=== PATIENT | female | born 1935 | race Caucasian/White ===

== ENCOUNTER 2016-10-10 20:55 | Emergency (ER) | payer OTHER ==
[~2016-10-10] VITALS: Ht 160 cm; Wt 102.1 kg
--- NOTE | ~2016-10-10 | EKG ---
[place] [address] [facility] [place] [place] [place] [address] ELECTROCARDIOGRAM REPORT Name: SHEILA BRANCH Room #: [facility] [id number] Admission: 10/10/16 Attend Phys: Discharge: 10/11/16 Date of : 39 Report #: [id number] THIS REPORT FOR: //name// [facility] ED Test Date: 2016-10-10 Test Time: 22:16:47 Pat Name: SHEILA BRANCH Department: Room: Gender: F Stretching Machine Operator: MARIA EUGENIA : 1935 Requested By: Lavonne Donald Order Number: [id number] MD: Stephen Tenorio Measurements Intervals [place] Rate: 77 P: 2 TX: 153 QRS: -5 QRSD: 102 T: 36 QT: 385 QTc: 436 Interpretive Statements Sinus rhythm Low voltage, precordial leads No previous ECG available for comparison Electronically Signed On 10-11-2016 8:10:31 WAREHOUSEMAN by Stephen Tenorio [email or web address] <ELECTRONICALLY SIGNED> By: Stephen Tenorio MD 10/11/16 0810 2216 2216 MD DEANNA Garces
[~2016-10-10 20:55] MED LIST: ALLOPURINOL 10100 M1 PO; APAP500 PO; ASPIRIN325 PO; BELLADONNA ALK/1 TA1 PO; CALCIUM CARBONATE PO; CITRACAL PLUS1 EAC1 PO; CLONAZEPAM 0.50.5 M1 PO; CLONAZEPAM PO; COLCHICINE 0.60.6 M1 PO; COLCHICINE PO; DULERA 100 MCG/13 GM INH; ENDUR-ACIN500 MG PO; ENOXAPARIN100 MG/11 SUBQ; EYE VITAMIN; HYDROCORTISONE; IBUPROFEN 800800 M1 PO; LEVOTHROID150 MCG PO; LEVOTHYROXIN0.125 M1 PO; LEXAPRO 10 MG T10 MG PO; LO-DOSE ASPIRIN81 M1 PO; LOFIBRA200 MG PO; MICARDIS40 MG PO; NEURONTIN600 MG PO; OMEGA-31000 MG PO; PRILOSEC 20 MG20 MG PO; PROAIR HFA8.5 GM INH; SPIRONOLACTONE25 M1 PO; SYMBICORT160 MCG/4.; SYSTANE 0.3-0.1 EACH OP; TRAMADOL 50 MG50 MG PO; TRIGLIDE160 M1 PO; TUMS E.S.750 MG PO; XARELTO15 MG; ZOCOR 20 MG TAB20 M1 PO
[2016-10-10 22:05] LABS: HEMATOCRIT 37.9 % (37.0-47.0); HEMOGLOBIN 12.9 gm/dL (12.0-15.0); MCH 30.4 pg (26.0-34.0); MCV 89.3 fL (80.0-100.0); PLATELET COUNT 243 thou/uL (150-400); RBC 4.24 mil/uL (4.20-5.00); RDW 14.5 % (10.5-14.5)
[2016-10-10 22:06] LABS: MANUAL DIFF YES
[2016-10-10 22:15] LABS: ANION GAP 8 mmol/L (7-16); BUN 24 mg/dL (7-18); CHLORIDE 102 mmol/L (98-107); CO2 30 mmol/L (21-32); CREATININE 1.6 mg/dL (0.6-1.3); GLUCOSE 118 mg/dL (70-99); POTASSIUM 4.4 mmol/L (3.5-5.1); SODIUM 140 mmol/L (136-145)
[2016-10-10 22:27] LABS: NT-PRO BRAIN NAT PEPTIDE 461 pg/mL (<300); TROPONIN-I < 0.04 ng/mL (<0.04-0.07)
[2016-10-10 22:55] LABS: ABSOLUTE NEUTROPHILS 3.3 thou/uL (1.4-8.2); ATYPICAL LYMPHS 1 %; TOTAL CELL COUNT 100
[2016-10-10 23:06] LABS: URINE BILIRUBIN NEGATIVE (Negative); URINE BLOOD NEGATIVE (Negative); URINE COLOR YELLOW; URINE GLUCOSE-RANDOM* NEGATIVE (Negative); URINE KETONES NEGATIVE (Negative); URINE LEUKOCYTES-REFLEX 1+ (Negative); URINE PROTEIN (DIPSTICK) NEGATIVE (Negative); URINE UROBILINOGEN 0.2 E.U./dl (0.2-1.0)
[2016-10-10 23:21] LABS: CASTS None Seen /LPF (None Seen); CRYSTALS None Seen /LPF (None Seen); FINE GRANULAR CASTS 0-3 Few /LPF (None Seen); SQUAMOUS 0-3 Few /LPF (0-3)
[2016-10-10 23:22] LABS: URINE RBC None Seen /HPF (0-2); URINE WBC-REFLEX 0-5 Rare /HPF (0-5)
[2016-10-10 23:23] LABS: HYALINE CASTS 0-3 Few /LPF (None Seen)
== END 2016-10-11 02:20 | disposition home or self-care (01) ==
LOC: ER 20:55
PROVIDERS: Emergency Medicine
DX: J06.9 Acute upper respiratory infection, unspecified (principal); R53.83 Other fatigue; I10 Essential (primary) hypertension; M19.90 Unspecified osteoarthritis, unspecified site; J45.909 Unspecified asthma, uncomplicated; Z90.710 Acquired absence of both cervix and uterus; Z90.49 Acquired absence of other specified parts of digestive tract; Z96.653 Presence of artificial knee joint, bilateral

== ENCOUNTER → 2016-12-27 | Outpatient (CLI) | payer OTHER | LOC: RAD 14:54 | DX: R05 Cough (principal) ==

== ENCOUNTER → 2017-07-05 | Outpatient (CLI) | payer OTHER ==
[~2017-07-05] VITALS: Ht 236.2 cm; Wt 105.7 kg
[~2017-07-05] MED LIST changes: +CENTRUM SILVER1 EAC4 PO; +LASIX 40 MG TAB40 M2 PO; +MEGARED OMEGA-1 EAC1 PO; +NABUMETONE 500500 M2 PO; +VITAMIN B-12500 MCG PO; +VITAMINC500 PO
--- NOTE | ~2017-07-05 | HPC ---
[facility] [address] [place] [address] PAIN MANAGEMENT CONSULTATION Name: SHEILA BRANCH Room #: REG BALJIT ArciniegaConradoGabeConrado#: [id number] Admission: 07/05/17 Attend Phys: Rupesh Gao DO Discharge: Date of : 37 Report #: [id number] THIS REPORT FOR: //name// CC: Rupesh Ramires MD DATE OF SERVICE: 07/05/2017 REFERRING PHYSICIAN: Walker Ramires MD CHIEF COMPLAINT: Right upper buttock and posterolateral thigh pain. HISTORY OF PRESENT ILLNESS: As you know, patient is a 81-year-old female with long-standing history of right buttock pain and hip pain, radiating down the right leg. She has had this for at least 8 years. She has progressively worsened. There is some concern with recent fall that the patient may have subsequently injured her pelvic brim though recent imaging showed no changes. She indicates her pain level of 8-9/10 today. She has been referred to our service to discuss options for treatment. She indicates pain is periodic, describes the pain as aching and sharp, places pain score today at 8-9/10, daily average is 7-8/10, worst pain has been 9/10. She states her pain is exacerbated with walking, standing; improves with stopping and resting. She has been referred to our service for evaluation. MRI lumbar spine that comes with the patient is from 2010. No other imaging is available. She has been referred to our clinic to discuss options for treatment. PAST MEDICAL HISTORY: 1. Hypertension. 2. Degenerative joint disease. 3. Osteoarthritis. 4. Gastroesophageal reflux disease. 5. Depression. 6. Gout. 7. Dyslipidemia. PAST SURGICAL HISTORY: 1. Left knee surgery. 2. Right knee surgery. 3. Left hip surgery. 4. Hysterectomy. SOCIAL HISTORY: The patient has a history of COPD without smoking. Denies IV or illicit drug use. Denies any chronic alcohol use. She is retired. She is unaccompanied today. [facility] [address] [place] [address] PAIN MANAGEMENT CONSULTATION Name: SHEILA BRANCH Raquel Room #: REG [facility].#: [id number] Admission: 07/05/17 Attend Phys: Rupesh Gao DO Discharge: Date of : 37 Report #: [id number] REVIEW OF SYSTEMS: Positive for fatigue and weakness, frequent and recurrent headaches, wearing corrective eyewear, shortness of breath walking or lying flat, asthma, wheezing, COPD, low back pain, left lower extremity pain, difficulty with ambulating, depression, insomnia, thyroid disease, heat and cold intolerance, obesity. All other review of systems negative per 12-point review of systems other than those listed in history of present illness. Pain impact score 46/70, indicating moderate to severe interference of daily activities secondary to pain. ALLERGIES: No reported drug allergies. CURRENT MEDICATIONS: MegaRed and omega-3 fish oil 1 tab per day, multivitamin 1 tab per day, cyanocobalamin 500 mcg per day, furosemide 40 mg per day, ascorbic acid 500 mg per day, levothyroxine 125 mcg per day, fenofibrate 160 mg per day, aspirin 81 mg per day, Systane one drop each eye per day, allopurinol 100 mg twice a day, omeprazole 20 mg per day, Lexapro 10 mg per day, Micardis 40 mg per day, spironolactone 25 mg per day. IMAGING: No new imaging available. PHYSICAL EXAMINATION: VITAL SIGNS: Blood pressure 134/66, pulse 88, respiratory rate 22 and unlabored. The patient is 95% on room air, height 5 feet 3 inches tall, weight 233 pounds, BMI calculated 41.3. GENERAL: Well-developed, well-nourished, well-hydrated, class 3 morbidly obese 81-year-old female appearing stated age. Pain is rated around 8-9/10. HEENT: Normocephalic, atraumatic. Pupils equal, round, reactive to light. Extraocular muscles are intact. Sclerae nonicteric without injection. NEUROLOGIC: Cranial nerves 2-12 grossly intact. Speech is fluent. The patient deemed a poor historian. LUNGS: Clear; no wheeze, rhonchi or rales. CARDIOVASCULAR: Regular. No appreciable gallop or rub. ABDOMEN: Soft, severely obese, normoactive bowel sounds. EXTREMITIES: Show no clubbing, no cyanosis, no edema. MUSCULOSKELETAL: The patient has palpatory tenderness over the lower lumbar spine, right greater than left. Deep palpation in the area causes intensification of pain. Pain is radiating across the lower lumbar region in a facet distribute. Seated straight leg raising negative. Supine straight leg raising positive for only axial back pain. Akiko's test is positive right, negative left. Ankle clonus negative. Babinski is negative. Muscle bulk and tone equal and symmetrical in lower extremities, deconditioning noted bilaterally. Gait antalgic, favoring right lower extremity over left. ASSESSMENT: 1. 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 [facility] [address] [place] [address] PAIN MANAGEMENT CONSULTATION Name: SHEILA BRANCH Room #: REG BALJIT Price#: [id number] Admission: 07/05/17 Attend Phys: Rupesh Gao DO Discharge: Date of : 37 Report #: [id number] 2. Facet arthropathy of lower lumbar spine. 3. Chronic intractable pain. PLAN: 1. The patient was referred to our clinic today by her primary care physician for evaluation for axial back pain issues. It does appear the patient is suffering from facet arthropathy of lower lumbar spine. I am also concerned of some potential changes within the sacral area itself as her pain is exquisitely tender directly over the area. These are likely related to the facet joints of the lower lumbar spine given her morbid obesity, class 3 rating and her current posture and lack of core strengthening, she is likely suffering from progressively worsening facet arthropathy. In 2010, her MRI shows severe facet changes and these have likely progressed. There is also a potential the patient has spinal stenosis and may need to look towards surgical intervention, though I do not have any imaging to initiate treatment. Typically, patients are sent to our clinic with some form of imaging that is current and up to date. Unfortunately, the patient did not have this completed. She comes today with imaging from 2010. To further evaluate, we will send the patient for imaging initially and discuss options for treatment once this imaging has been obtained. 2. The patient will be send for x-ray imaging, AP and lateral of the lumbar spine. We will review the findings once they are available with the patient. We will discuss the treatment options based on this whether or not moving forward with an MRI or interventional treatments could be directed towards facet arthropathy changes, will be determined by the x-ray imaging. 3. The patient will return to our clinic in 1 week. We will review the x-ray imaging and discuss if more aggressive treatment options will be necessary or further imaging might be requested. 4. We wish to thank Dr. Walker Ramires for the referral of this patient to our clinic. We appreciate the opportunity to see the patient in consultation. We will keep you apprised of her response to treatment and return her to your capable hands once we have determined the source of treatment options and the most effective way of treating her low back symptoms. Again, we wish to thank you for the opportunity to see this patient in consultation. <ELECTRONICALLY SIGNED> By: Rupesh Gao DO 07/13/17 0806 2 0849 Rupesh Gao DO /nt
[2017-07-05 13:45] VITALS: BP 134/66
== END | disposition home or self-care (01) ==
LOC: PAIN 07:18
DX: M47.817 Spondylosis without myelopathy or radiculopathy, lumbosacral region (principal); M12.88 Other specific arthropathies, not elsewhere classified, other specified site; G89.29 Other chronic pain; I10 Essential (primary) hypertension; J44.9 Chronic obstructive pulmonary disease, unspecified; M19.90 Unspecified osteoarthritis, unspecified site; K21.9 Gastro-esophageal reflux disease without esophagitis; F32.89 Other specified depressive episodes; M10.9 Gout, unspecified; E07.9 Disorder of thyroid, unspecified; E78.5 Hyperlipidemia, unspecified; E66.09 Other obesity due to excess calories; Z90.710 Acquired absence of both cervix and uterus; Z98.890 Other specified postprocedural states; Z79.82 Long term (current) use of aspirin; Z79.899 Other long term (current) drug therapy; Z68.41 Body mass index [BMI] 40.0-44.9, adult

== ENCOUNTER → 2017-07-12 | Outpatient (CLI) | payer OTHER ==
[~2017-07-12] VITALS: Ht 160 cm; Wt 107.0 kg
--- NOTE | ~2017-07-12 | HPC ---
[facility] [address] [place] [address] PAIN MANAGEMENT CONSULTATION Name: SHEILA BRANCH Room #: REG BALIJT ConradoGabe.#: [id number] Admission: 07/12/17 Attend Phys: Rupesh Gao DO Discharge: Date of : 37 Report #: [id number] THIS REPORT FOR: //name// CC: Rupesh Ramires MD DATE OF SERVICE: 07/12/2017 REFERRING PHYSICIAN: Walker Ramires MD CHIEF COMPLAINT: Low back pain, bilateral lower extremity pain. HISTORY OF PRESENT ILLNESS: As you know, the patient is a 81-year-old female who returns today in followup visit to undergo lumbar epidural injection under fluoroscopic guidance. The patient underwent imaging last week of the lumbar and pelvic area, there are no fractures or concerns of dislocations after her fall. It appears the patient is suffering from continued lumbar radicular symptoms. She returns today in followup visit to undergo epidural injection under fluoroscopic guidance to address her 5/10 pain. Pain is exacerbated with standing, walking, improves with rest and sitting. She returns today for this epidural injection. ALLERGIES: No known drug allergies. CURRENT MEDICATIONS: Tramadol, nabumetone, omega-3 fish oil, multivitamin, cyanocobalamin, furosemide, ascorbic acid, levothyroxine, fenofibrate, aspirin, magnesium oxide, Prilosec, Lexapro, Micardis, and spirolactone. SOCIAL HISTORY: The patient denies tobacco, alcohol, IV or illicit drug use. She is retired, retired years ago, unaccompanied today. IMAGING: No new imaging available. PHYSICAL EXAMINATION: VITAL SIGNS: Blood pressure 122/67, pulse 87, respiratory rate 22 and unlabored, the patient is 95% on room air, height 5 feet 3 inches tall, weight 236 pounds, and BMI calculated 41.8. GENERAL: Well-developed, well-nourished, well-hydrated, class 3 morbidly obese 81-year-old female, appearing her stated age, pain is rated at around 5/10. HEENT: Normocephalic, atraumatic. Pupils are equal, round, and reactive to light. EXTREMITIES: Show no clubbing, no cyanosis, and no edema. MUSCULOSKELETAL: Seated straight leg raising negative. Supine straight leg raising negative. Akiko's test negative. Modified Gaenslen's positive for axial low back pain. Ankle clonus negative. Babinski is negative. [facility] [address] [place] [address] PAIN MANAGEMENT CONSULTATION Name: SHEILA BRANCH Room #: REG [facility]#: [id number] Admission: 07/12/17 Attend Phys: Rupesh Gao DO Discharge: Date of : 37 Report #: [id number] ASSESSMENT: 1. Lumbar radicular symptoms. 2. Lumbosacral spondylosis with radiculopathy. 3. Chronic intractable pain. PLAN: 1. The patient returns today in followup visit where we reviewed her x-ray imaging, I am pleased to advise the patient at this time that there are no fractures of the sacrum or pelvic area. The patient was experiencing increased back pain after a fall. No fractures in the lumbar region noted as well. We have discussed with the patient the option of the epidural injection today in hopes of improving pain. She was amenable to undergo the procedure. She was advised the risks and benefits. 2. The patient was advised the risks and benefits of a lumbar epidural injection. These risks include, but are not necessarily limited to bleeding, bruising, infection, worsening of pain, no relief of pain, also risk of temporary or permanent muscle weakness, temporary or permanent nerve damage, possible paralysis and . The patient states understood and wished to proceed. 3. No medication changes were made at today's visit, the patient to continue current medical therapy as previously prescribed. 4. We will see the patient back in followup visit on an as needed basis for next in the series of epidural injections. PROCEDURE NOTE DESCRIPTION OF PROCEDURE: L5-S1 right paramedian epidural steroid injection under fluoroscopic guidance. After obtaining written consent, the patient was taken back to fluoroscopy suite, placed in prone position with pillow under abdomen to decrease lumbar lordosis. Skin overlying the lumbosacral area was prepped and draped in aseptic fashion. Lumbar intervertebral spaces were identified by AP fluoroscopy. Skin and subcutaneous tissue overlying target site of injection was anesthetized with 3 mL of 1% lidocaine. A 20-gauge 4-1/2-inch Tuohy needle advanced under fluoroscopic guidance towards the epidural space using a right paramedian approach. Epidural space identified using loss of resistance to air technique. After negative aspiration for heme or cerebrospinal fluid, 1 mL of Isovue was injected. Lumbar epidurogram was confirmed using both AP and lateral fluoroscopy. After negative aspiration for heme or cerebrospinal fluid, 5 mL of a solution containing 2 mL 40 mg per mL, 80 mg total triamcinolone, 3 mL lidocaine 1% injected slowly. Needle retracted alf, needle tract flushed 3 mL 1% lidocaine. Needle then removed. Sterile bandage placed over injection site. No new motor deficits present in the lower [address] [address] PAIN MANAGEMENT CONSULTATION Name: SHEILA BRANCH [facility] [id number] Admission: 07/12/17 Attend Phys: Rupesh Gao DO Discharge: Date of : 37 Report #: [id number] extremity following procedure. The patient tolerated the procedure well, carefully escorted to the recovery room in stable condition. No apparent complications. After meeting discharge criteria, the patient discharged home. <ELECTRONICALLY SIGNED> By: Rupesh Gao DO 07/13/17 0806 1630 1703 Rupesh Gao DO /nt
[2017-07-12 11:31] VITALS: BP 122/67
== END | disposition home or self-care (01) ==
LOC: PAIN 07:35
DX: M54.16 Radiculopathy, lumbar region (principal); M47.27 Other spondylosis with radiculopathy, lumbosacral region; G89.29 Other chronic pain; Z68.41 Body mass index [BMI] 40.0-44.9, adult; Z79.899 Other long term (current) drug therapy

== ENCOUNTER → 2017-08-02 | Outpatient (CLI) | payer OTHER ==
[~2017-08-02] VITALS: Ht 160 cm; Wt 101.9 kg
--- NOTE | ~2017-08-02 | HPC ---
[facility] [address] [place] [address] PAIN MANAGEMENT CONSULTATION Name: SHEILA BRANCH Room #: REG BALJIT Albert#: [id number] Admission: 08/02/17 Attend Phys: Rupesh Gao DO Discharge: Date of : 37 Report #: [id number] THIS REPORT FOR: //name// CC: Rupesh Ramires MD DATE OF SERVICE: 08/02/2017 CHIEF COMPLAINT: Low back pain, bilateral lower extremity pain with paresthesias. HISTORY OF PRESENT ILLNESS: As you know, the patient is a 81-year-old female who returns today in followup visit having undergone epidural injection at our last visit to address lumbar radicular symptoms. She is now placing pain score 3/10. She reports 75% improvement in overall pain that is ongoing with the previous injection. She returns today to undergo in the series of epidural injections to build on success of previous intervention. She denies new injury, new trauma that may have led to progression of symptoms. She describes the pain as burning, aching and sharp. Standing and walking exacerbate symptoms. Rest, sitting and epidural injections tend to improve pain. She has returned to undergo epidural injection. ALLERGIES: No known drug allergies. CURRENT MEDICATIONS: Tramadol, nabumetone, omega 3 fish oil, multivitamin, cyanocobalamin, furosemide, ascorbic acid, levothyroxine, fenofibrate, aspirin, magnesium oxide, Prilosec, Lexapro, Micardis, spironolactone. SOCIAL HISTORY: The patient denies tobacco, alcohol, IV or illicit drug use. She is retired, retired years ago, unaccompanied today. IMAGING: No new imaging available. PHYSICAL EXAMINATION: VITAL SIGNS: Blood pressure 134/59, pulse 74, respiratory rate 20, unlabored. The patient is 95% on room air, height 5 feet 3 inch tall, weight 224.6 pounds, BMI calculated 39.8. GENERAL: Well-developed, well-nourished, well-hydrated, morbidly obese 81-year-old female appearing stated age, placing current pain score 3/10. HEENT: Normocephalic, atraumatic. Pupils are equal, round, reactive to light. EXTREMITIES: Show no clubbing, no cyanosis, no edema. MUSCULOSKELETAL: Seated straight leg raising negative. Supine straight leg raising negative. Akiko's test negative. Modified Gaenslen's positive for axial low back pain. Ankle clonus negative. Babinski is negative. [facility] [address] [place] [address] PAIN MANAGEMENT CONSULTATION Name: SHEILA BRANCH Room #: REG [facility]#: [id number] Admission: 08/02/17 Attend Phys: Rupesh Gao DO Discharge: Date of : 37 Report #: [id number] ASSESSMENT: 1. Symptomatic lumbar radiculopathy. 2. Lumbosacral spondylosis with radicular symptoms. 3. Lumbar degeneration. 4. Chronic intractable pain. PLAN: 1. The patient has returned today in followup visit reporting improvement in low back pain of 75% with the epidural injection provided at last visit. She returns today in followup visit reporting pain score around 3/10. She returns to undergo next in the series of epidural injections in hopes of building on success of the previous intervention. She has been advised risks and benefits of the procedure, states she understood and wished to proceed. 2. No medication changes were made at today's visit. I did provide the patient with a refill prescription of her tramadol 50 mg dose, #60, no refills. I did advise the patient this medication should last 30 days, she should not be relying on the medication prophylactically. 3. We will see the patient back in followup visit on an as needed basis. She can receive the tramadol from her PCP if interventional treatments are not necessary and she just needs refills of therapy. PROCEDURE NOTE DESCRIPTION OF PROCEDURE: Lumbar epidural steroid injection under fluoroscopic guidance. After obtaining written consent, the patient was taken back to fluoroscopy suite, placed in prone position with pillow under abdomen to decrease lumbar lordosis. Skin overlying lumbosacral area prepped and draped in aseptic fashion. Lumbar intervertebral spaces were identified by AP fluoroscopy. Skin and subcutaneous tissue overlying the target site of injection was anesthetized with 3 mL of 1% lidocaine. A 20-gauge 4-1/2 inch Tuohy needle advanced under fluoroscopic guidance towards the epidural space using a midline approach. Epidural space identified using loss of resistance to air technique. After negative aspiration for heme or cerebrospinal fluid, 1 mL of Omnipaque was injected. Lumbar epidurogram was confirmed using both AP and lateral fluoroscopy. After negative aspiration for heme or cerebrospinal fluid, 5 mL of a solution containing 2 mL 40 mg per mL, 80 mg total triamcinolone, 3 mL lidocaine 1% injected slowly. Needle retracted fci, needle tract flushed with 3 mL 1% lidocaine. Needle then removed. Sterile bandage placed over injection site. No new motor deficits present in the lower extremity following the procedure. The patient tolerated procedure well, carefully escorted to the recovery room in [address] [address] PAIN MANAGEMENT CONSULTATION Name: SHEILA BRANCH Room #: REG BALJIT BolandConrado#: [id number] Admission: 08/02/17 Attend Phys: Rupesh Gao DO Discharge: Date of : 37 Report #: [id number] stable condition. No apparent complication. After meeting discharge criteria, the patient discharged home. By: 0836 1256 Rupesh Gao DO /nt
[2017-08-02 11:32] VITALS: BP 134/59
== END | disposition home or self-care (01) ==
LOC: PAIN 05:54
DX: M51.36 Other intervertebral disc degeneration, lumbar region (principal); M47.27 Other spondylosis with radiculopathy, lumbosacral region; G89.29 Other chronic pain; Z79.82 Long term (current) use of aspirin; Z98.890 Other specified postprocedural states

== ENCOUNTER 2017-12-10 03:51 | Inpatient (IN) | payer OTHER ==
[~2017-12-10] VITALS: Ht 160 cm; Wt 100.3 kg
--- NOTE | ~2017-12-10 | EKG ---
[place] [address] [facility] [place] [address] ELECTROCARDIOGRAM REPORT Name: SHEILA BRANCH Room #: 447-P ADM IN M.R.#: [id number] Admission: 12/10/17 Attend Phys: Walker Ramires MD Discharge: Date of : 37 Report #: [id number] THIS REPORT FOR: //name// [facility] ED Test Date: 2017-12-10 Test Time: 04:42:14 Pat Name: SHEILA BRANCH Department: Room: [facility] Gender: F Integrity Consultant: [facility] : 1935 Requested By: Luis Hein Order Number: [id number] MD: Jesus Gordon Measurements Intervals [place] Rate: 90 P: -2 IN: 155 QRS: -3 QRSD: 98 T: 51 QT: 378 QTc: 463 Interpretive Statements Sinus rhythm Low voltage, precordial leads Compared to ECG 10/10/2016 22:16:47 No significant changes Electronically Signed On 12-10-2017 13:08:41 MANAGER STRATEGIC by Jesus Gordon [email or web address] <ELECTRONICALLY SIGNED> By: Jesus Gordon MD, [facility] 12/10/17 1308 044 044 Jesus Gordon MD, [facility] /EPI
--- NOTE | ~2017-12-10 | HC ---
[facility] [address] [place] [address] CONSULTATION Name: SHEILA BRANCH Room #: 447-P [facility] [place] ..#: [id number] Admission: 12/10/17 Attend Phys: Walker Ramires MD Discharge: Date of : 39 Report #: [id number] THIS REPORT FOR: //name// CC: Walker Ramires TYPE OF REPORT: Pulmonary consultation. PRIMARY CARE PHYSICIAN: Walker Ramires M.D. REASON FOR CONSULTATION: Dyspnea, flu and COPD. HISTORY OF PRESENT ILLNESS: The patient is an 82-year-old white female who presents to Emergency Room with a cough, myalgias and progressively not feeling well. She was found to have influenza. The patient was admitted. The patient states that she has been told that she has COPD. She has never smoked in the past. Otherwise, she has been doing fairly well until about a week ago when she was out for dinner with children, grandchildren and great grandchildren. Few days later, she felt ill with chills, myalgias. Few days ago, she started to develop cough productive of yellowish sputum. With worsening symptoms, she presented to Emergency Room. Chest x-ray performed in the Emergency Room was clear. Her influenza antigen was positive for influenza B. Her other complaints are sore throat and dyspnea. PAST MEDICAL HISTORY: Notable for pulmonary embolus in 2012. She was felt to have submassive pulmonary embolus. This occurred following a trip by airplane. She has a history of hypertension, osteoarthritis, dyslipidemia, hypothyroidism and coronary artery disease. Of note, she has completed 6 months of anticoagulant therapy for pulmonary embolus. PAST SURGICAL HISTORY: Notable for vein ablation surgery in both lower extremities, left total knee replacement in 2003 and 2004, right total knee replacement, left hip replacement in 2001, cholecystectomy in 1982, total hysterectomy in 1974 and cataract surgery. ALLERGIES: None noted. HOME MEDICATIONS: Nabumetone 500 mg t.i.d., Ultram, spironolactone, Micardis, Lexapro, Prilosec, Zyloprim, aspirin, fenofibrate, Synthroid, Lasix and multivitamins. FAMILY HISTORY: Notable for CVA and heart disease in the father who at the age of 77. [address] [address] CONSULTATION Name: SHEILA BRANCH Room #: 447-P [facility] IN M.R.#: [id number] Admission: 12/10/17 Attend Phys: Walker Ramires MD Discharge: Date of : 39 Report #: [id number] SOCIAL HISTORY: She is , lives by herself. She has family who lives in town. She is a lifetime nonsmoker. She denies any alcohol use. REVIEW OF SYSTEMS: As mentioned above, otherwise 10-point system review negative. PHYSICAL EXAMINATION: GENERAL: She is awake and alert, in no distress. VITAL SIGNS: Temperature maximum is 102 degrees Fahrenheit, pulse is 74, respiratory rate is 20, blood pressure is 118/95 mmHg and saturation 94%. HEENT: Normocephalic and atraumatic. NECK: Supple, without any lymphadenopathy or thyromegaly. CHEST: Breath sounds are fair with mild expiratory wheezes. No rales. CARDIOVASCULAR: Heart sounds are distant. No murmurs or gallop. Pulses are 2+/4+ bilaterally. BREASTS: Exam is deferred. ABDOMEN: Obese, soft and nontender. No organomegaly or masses felt. GENITOURINARY: Deferred. RECTAL: Deferred. EXTREMITIES: No cyanosis or clubbing. Trace edema bilaterally. RADIOLOGICAL DATA: Chest x-ray again was unremarkable. LABORATORY DATA: Influenza antigen as mentioned above. Sodium 135, potassium 3.7, chloride 100, CO2 is 29, BUN is 25 and creatinine is 1.4. Liver function enzymes are mildly elevated. WBC 6200, hemoglobin is 12.9 and platelets are normal. IMPRESSION: 1. Acute respiratory distress due to influenza B, possible pneumonia. 2. Chronic obstructive pulmonary disease, mild exacerbation. Note the patient has never smoked, (?) asthma or obesity related asthma. 3. Acute kidney injury with a creatinine of 1.1. RECOMMENDATIONS: Agree with current treatment including Tamiflu, bronchodilators, corticosteroids and broad-spectrum antibiotics. DVT and GI prophylaxis will be addressed. Thank you for this consultation. <ELECTRONICALLY SIGNED> By: Blair Mckeon MD 12/11/17 1526 1526 [id number] Blair Mckeon MD /nt
[2017-12-10 03:55] VITALS: BP 153/78
[2017-12-10 05:15] LABS: HEMATOCRIT 38.3 % (37.0-47.0); HEMOGLOBIN 12.9 gm/dL (12.0-15.0); MCH 30.7 pg (26.0-34.0); MCHC 33.7 g/dL (28.0-37.0); MCV 91.1 fL (80.0-100.0); PLATELET COUNT 182 thou/uL (150-400); RDW 14.5 % (10.5-14.5); WBC 6.2 thou/uL (4.0-11.0)
[2017-12-10 05:22] LABS: ANION GAP 6 mmol/L (7-16); BUN 25 mg/dL (7-18); CALCIUM 8.9 mg/dL (8.5-10.1); CHLORIDE 100 mmol/L (98-107); CO2 29 mmol/L (21-32); CREATININE 1.4 mg/dL (0.6-1.0); GLUCOSE 122 mg/dL (74-106); POTASSIUM 3.7 mmol/L (3.5-5.1); SODIUM 135 mmol/L (136-145)
[2017-12-10 05:31] LABS: ALBUMIN 3.5 g/dL (3.4-5.0); MAGNESIUM 1.6 mg/dL (1.8-2.4); SGOT 57 U/L (15-37); SGPT 45 U/L (30-65); TOTAL BILIRUBIN 0.4 mg/dL (<0.1-1.0); TOTAL PROTEIN 6.8 g/dL (6.4-8.2); TROPONIN-I < 0.04 ng/mL (<0.06)
[2017-12-10 05:31] LABS: URINE BILIRUBIN NEGATIVE (Negative); URINE BLOOD NEGATIVE (Negative); URINE CLARITY CLEAR; URINE COLOR YELLOW; URINE GLUCOSE-RANDOM* NEGATIVE (Negative); URINE KETONES NEGATIVE (Negative); URINE LEUKOCYTES-REFLEX NEGATIVE (Negative); URINE NITRITE-REFLEX NEGATIVE (Negative); URINE PROTEIN (DIPSTICK) NEGATIVE (Negative); URINE UROBILINOGEN 0.2 E.U./dl (0.2-1.0)
[2017-12-10 05:59] LABS: ATYPICAL LYMPHS 1 %; LARGE PLATELETS OCCASIONAL
[2017-12-10 07:43] VITALS: BP 158/78
[2017-12-10 08:10] VITALS: BP 158/78
[2017-12-10 09:40] VITALS: BP 118/95
[2017-12-10 16:24] VITALS: BP 145/70
[2017-12-10 19:25] VITALS: BP 134/69
[2017-12-11 03:41] VITALS: BP 151/93
[2017-12-11 06:12] LABS: HEMATOCRIT 35.5 % (37.0-47.0); MCH 30.9 pg (26.0-34.0); MCHC 33.9 g/dL (28.0-37.0); MCV 91.1 fL (80.0-100.0); RBC 3.9 mil/uL (4.20-5.00); RDW 14.6 % (10.5-14.5); WBC 5.5 thou/uL (4.0-11.0)
[2017-12-11 06:32] LABS: CALCIUM 8.3 mg/dL (8.5-10.1); CREATININE 1.1 mg/dL (0.6-1.0); POTASSIUM 3.5 mmol/L (3.5-5.1)
[2017-12-11 08:30] VITALS: BP 156/88
[2017-12-11 16:49] VITALS: BP 150/80
[2017-12-11 19:44] VITALS: BP 156/82
[2017-12-12 04:19] VITALS: BP 123/62
[2017-12-12 07:24] LABS: HEMATOCRIT 36.6 % (37.0-47.0); HEMOGLOBIN 12.2 gm/dL (12.0-15.0); MCH 30.6 pg (26.0-34.0); MCHC 33.2 g/dL (28.0-37.0); MCV 91.9 fL (80.0-100.0); RBC 3.98 mil/uL (4.20-5.00); WBC 5.1 thou/uL (4.0-11.0)
[2017-12-12 07:36] LABS: CALCIUM 8.1 mg/dL (8.5-10.1); CREATININE 0.9 mg/dL (0.6-1.0); POTASSIUM 4.5 mmol/L (3.5-5.1)
[2017-12-12 08:00] VITALS: BP 156/95
[2017-12-12 16:00] VITALS: BP 170/87
[2017-12-12 19:21] VITALS: BP 158/62
[2017-12-13 03:13] VITALS: BP 156/81
[2017-12-13 08:00] VITALS: BP 137/55
[2017-12-13 16:00] VITALS: BP 155/79
[2017-12-13 20:31] VITALS: BP 170/87
[2017-12-14 00:57] VITALS: BP 163/81
[2017-12-14 03:18] VITALS: BP 164/82
[2017-12-14 08:00] VITALS: BP 173/88
[2017-12-14 09:49] LABS: HEMOGLOBIN 13.5 gm/dL (12.0-15.0); MCH 30.6 pg (26.0-34.0); MCHC 33.7 g/dL (28.0-37.0); MCV 90.7 fL (80.0-100.0); RBC 4.42 mil/uL (4.20-5.00); RDW 14.4 % (10.5-14.5); WBC 6.2 thou/uL (4.0-11.0)
[2017-12-14 09:57] LABS: CALCIUM 9.3 mg/dL (8.5-10.1); CREATININE 1.1 mg/dL (0.6-1.0)
[2017-12-14] MEDS ORDERED: CEFDINIR300 MG PO (12:19)
[2017-12-14] MEDS ORDERED: AZITHROMYCIN 2250 MG PO (12:22)
[2017-12-14] MEDS ORDERED: OSELB75 PO (12:22)
[2017-12-14 16:47] VITALS: BP 173/88
[2017-12-15 10:21] VITALS: BP 173/88
== END 2017-12-14 17:25 | disposition home health service (06) | DRG 871 ==
LOC: ER 03:51 → EROBS 06:24 → 4S 06:24
PROVIDERS: Emergency Medicine; Family Medicine; Internal Medicine Pulmonary Disease
DX: A41.9 Sepsis, unspecified organism (principal); J10.00 Influenza due to other identified influenza virus with unspecified type of pneumonia; N17.0 Acute kidney failure with tubular necrosis; N17.9 Acute kidney failure, unspecified; J44.1 Chronic obstructive pulmonary disease with (acute) exacerbation; J44.0 Chronic obstructive pulmonary disease with (acute) lower respiratory infection; N18.9 Chronic kidney disease, unspecified; I12.9 Hypertensive chronic kidney disease with stage 1 through stage 4 chronic kidney disease, or unspecified chronic kidney disease; E78.5 Hyperlipidemia, unspecified; E03.9 Hypothyroidism, unspecified; I25.10 Atherosclerotic heart disease of native coronary artery without angina pectoris; Z96.653 Presence of artificial knee joint, bilateral; Z96.642 Presence of left artificial hip joint; Z90.710 Acquired absence of both cervix and uterus; Z79.899 Other long term (current) drug therapy; Z86.711 Personal history of pulmonary embolism; Z90.49 Acquired absence of other specified parts of digestive tract; Z82.49 Family history of ischemic heart disease and other diseases of the circulatory system; Z82.3 Family history of stroke
CPT/HCPCS: 10100

== ENCOUNTER → 2017-12-28 | Outpatient (CLI) | payer OTHER ==
[~2017-12-28] MED LIST changes: +ACCUNEB SO1.25 MG/1 INH; +AZITHROMYCIN 2250 MG PO; +CEFDINIR300 MG PO; +FENOFIBRATE160 MG PO; +FLONASE 0.05%50 MCG NASAL; +LUTEIN-ZEAXANT1 EACH PO; +MECLIZINE HCL25 MG PO; +OSELB75 PO; +SPIRIVA INH
== END ==
LOC: RAD 14:01
DX: M47.894 Other spondylosis, thoracic region (principal)

== ENCOUNTER → 2018-01-05 | Outpatient (CLI) | payer OTHER ==
[~2018-01-05] MED LIST changes: -ACCUNEB SO1.25 MG/1 INH; -FENOFIBRATE160 MG PO; -FLONASE 0.05%50 MCG NASAL; -LUTEIN-ZEAXANT1 EACH PO; -MECLIZINE HCL25 MG PO; -SPIRIVA INH
--- NOTE | ~2018-01-05 | 2DMMODE ---
[facility] [address] [place] [address] 2 D/M-MODE ECHOCARDIOGRAM Name: SHEILA BRANCH KELLEY Room #: REG [facility] [id number] Admission: 01/05/18 Attend Phys: Blair Mckeon MD Discharge: Date of : 39 Date of Service: 01/05/18 1551 Report #: [id number] THIS REPORT FOR: //name// APPROVED REPORT Study performed: 01/05/2018 13:28:07 EXAM: Comprehensive 2D, Doppler, and color-flow Echocardiogram Patient Location: Out-Patient Status: routine BSA: 2.05 HR: 86 bpm BP: 142/79 mmHg Rhythm: NSR Other Information Study Quality: Adequate Technically limited study due to lung disease, body habitus. Indications Short of breath. Hx: COPD pulmonary embolism 2D Dimensions RVDd: 36.88 mm LVEF(%): 60.51 (>50%) IVSd: 11.00 (7-11mm) LVOT Diam: 22.70 (18-24mm) LVDd: 46.91 mm PWd: 11.28 (7-11mm) Ascending Ao: 31.67 (22-36mm) LVDs: 31.77 (25-40mm) Aortic Root: 36.14 mm Jenkins's LVEF: 60.51 % Volumes Left Atrial Volume (Systole) Single Plane 4CH: 26.26 mL Single Plane 2CH: 35.59 mL LA ESV Index: 16.00 mL/m2 Aortic Valve AoV Peak Mo.: 1.27 m/s AO Peak Gr.: 6.47 mmHg LVOT Max P.58 mmHg LVOT Max V: 0.95 m/s ISAAC Vmax: 3.01 cm2 Mitral Valve [facility] [address] [place] [address] 2 D/M-MODE ECHOCARDIOGRAM Name: SHEILA BRANCH [facility] Room #: REG [facility].#: [id number] Admission: 01/05/18 Attend Phys: Blair Mckeon MD Discharge: Date of : 39 Date of Service: 01/05/18 1551 Report #: [id number] E/A Ratio: 0.4 MV Decel. Time: 288.84 ms MV E Max Mo.: 0.38 m/s MV A Mo.: 0.90 m/s MV PHT: 83.76 ms IVRT: 89.97 ms Pulmonary Valve PV Peak Mo.: 0.93 m/s PV Peak Gr.: 3.45 mmHg Pulmonary Vein P Vein S: 0.64 m/s P Vein A: 0.51 m/s P Vein D: 0.47 m/s P Vein A Dur.: 107.3 msec P Vein S/D Ratio: 1.36 Tricuspid Valve TR Peak Mo.: 2.11 m/s RAP Estimate: 5.00 mmHg TR Peak Gr.: 17.74 mmHg PA Pressure: 23.00 mmHg Left Ventricle The left ventricle is normal size. There is normal LV segmental wall motion. There is normal left ventricular wall thickness. The left ventricular systolic function is normal. LVEF is 60%. Mild diastolic dysfunction is present (impaired relaxation pattern). Right Ventricle Right ventricle is borderline dilated. The right ventricular systolic function is low normal. Atria The left atrium size is normal. The right atrium size is normal. Aortic Valve The aortic valve is normal in structure. No aortic regurgitation is present. There is no aortic valvular stenosis. Mitral Valve The mitral valve is normal in structure. Mild mitral regurgitation. Tricuspid Valve The tricuspid valve is normal in structure. Trace to mild tricuspid regurgitation. Estimated PAP is 25mmHg. [facility] [address] [place] [address] 2 D/M-MODE ECHOCARDIOGRAM Name: SHEILA BRANCH [facility] Room #: REG Albert#: [id number] Admission: 01/05/18 Attend Phys: Blair Mckeon MD Discharge: Date of : 39 Date of Service: 01/05/18 1551 Report #: [id number] Pulmonic Valve Pulmonic valve is not well visualized. Great Vessels The aortic root is normal in size. The ascending aorta is normal in size. IVC is normal in size and collapses >50% with inspiration. Pericardium There is no pericardial effusion. <Conclusion> The left ventricle is normal size. LVEF is 60%. Right ventricle is borderline dilated. The aortic valve is normal in structure. The mitral valve is normal in structure. Mild mitral regurgitation. The tricuspid valve is normal in structure. Trace to mild tricuspid regurgitation. Estimated PAP is 25mmHg. Pulmonic valve is not well visualized. There is no pericardial effusion. <ELECTRONICALLY SIGNED> By: Mello Rodriguez MD 01/05/18 1551 1551 155 Mello Rodriguez MD /INF
--- NOTE | ~2018-01-05 | EKG ---
[place] [address] [facility] [place] [address] ELECTROCARDIOGRAM REPORT Name: SHEILA BRANCH [id number] Admission: 01/05/18 Attend Phys: Blair Mckeon MD Discharge: Date of : 39 Report #: [id number] THIS REPORT FOR: //name// [facility] Test Date: 2018-01-05 Test Time: 13:58:45 Pat Name: SHEILA BRANCH Department: Room: Gender: F Call Center Team Leader: Aura CHÁVEZ : 1935 Requested By: Hussein Blue Order Number: [id number] MD: Measurements Intervals [place] Rate: 83 P: 36 ND: 151 QRS: -13 QRSD: 95 T: 59 QT: 380 QTc: 447 Interpretive Statements Sinus rhythm Low voltage, precordial leads Compared to ECG 12/28/2017 17:41:36 No significant changes [email or web address] By: [id number] Epiphany Epiphany, /EPI
== END ==
LOC: CV 06:25
DX: J45.40 Moderate persistent asthma, uncomplicated (principal); I26.92 Saddle embolus of pulmonary artery without acute cor pulmonale; R61 Generalized hyperhidrosis; I65.29 Occlusion and stenosis of unspecified carotid artery; I10 Essential (primary) hypertension; I25.10 Atherosclerotic heart disease of native coronary artery without angina pectoris; Z88.8 Allergy status to other drugs, medicaments and biological substances

== ENCOUNTER 2018-07-18 15:52 | Emergency (ER) | payer OTHER ==
[~2018-07-18] VITALS: Ht 160 cm; Wt 102.1 kg
--- NOTE | ~2018-07-18 | EKG ---
[address] [place] [address] ELECTROCARDIOGRAM REPORT Name: SHEILA BRANCH Room #: [facility] KIAN Price#: [id number] Admission: 07/18/18 Attend Phys: Discharge: 07/18/18 Date of : 39 Report #: [id number] THIS REPORT FOR: //name// [facility] ED Test Date: 2018-07-18 Test Time: 16:35:05 Pat Name: SHEILA BRANCH Department: Room: Gender: F Faa Certified Powerplant Mechanic: ARNIE : 1935 Requested By: Lavonne Donald Order Number: [id number] MD: Jesus Gordon Measurements Intervals [place] Rate: 73 P: 43 CA: 165 QRS: 1 QRSD: 99 T: 57 QT: 409 QTc: 451 Interpretive Statements Sinus rhythm Poor R wave progression Compared to ECG 01/05/2018 13:58:45 No significant change was found Electronically Signed On 07-19-2018 8:59:23 CDT by Jesus Gordon [email or web address] <ELECTRONICALLY SIGNED> By: Jesus Gordon MD, [facility] 07/19/18 0859 1635 1635 Jesus Gordon MD, FACC /EPI
[2018-07-18] MEDS ORDERED: FENOFIBRATE160 MG PO ×2 (16:21→16:29)
[2018-07-18] MEDS ORDERED: ACCUNEB SO1.25 MG/1 INH (16:28)
[2018-07-18] MEDS ORDERED: FLONASE 0.05%50 MCG NASAL (16:29)
[2018-07-18] MEDS ORDERED: LUTEIN-ZEAXANT1 EACH PO (16:30)
[2018-07-18] MEDS ORDERED: SPIRIVA INH ×2 (16:31→16:32)
[2018-07-18 16:40] LABS: ABSOLUTE NEUTROPHILS 4.6 thou/uL (1.4-8.2); BASOPHILS 1.2 % (0.0-2.0); EOSINOPHILS 4.5 % (0.0-3.0); HEMATOCRIT 41.4 % (37.0-47.0); LYMPHOCYTES 33.1 % (24.0-44.0); MCH 31.1 pg (26.0-34.0); MCHC 33.8 g/dL (28.0-37.0); MCV 91.9 fL (80.0-100.0); MONOCYTES 9.5 % (1.0-8.0); PLATELET COUNT 251 thou/uL (150-400); POLYS 51.7 % (36.0-66.0); RDW 14.8 % (10.5-14.5)
[2018-07-18 16:44] LABS: CALCIUM 9.8 mg/dL (8.5-10.1); CREATININE 1.6 mg/dL (0.6-1.0)
[2018-07-18 18:06] LABS: LARGE PLATELETS SEVERAL
[2018-07-18] MEDS ORDERED: MECLIZINE HCL25 MG PO (18:33)
== END 2018-07-18 18:53 | disposition home or self-care (01) ==
LOC: ER 15:52
PROVIDERS: Emergency Medicine
DX: R42 Dizziness and giddiness (principal); R51 Headache; R10.9 Unspecified abdominal pain; R11.0 Nausea; J44.9 Chronic obstructive pulmonary disease, unspecified; G47.30 Sleep apnea, unspecified; Z79.899 Other long term (current) drug therapy

== ENCOUNTER 2019-07-02 14:47 | Emergency (ER) | payer OTHER ==
[~2019-07-02] VITALS: Ht 160 cm; Wt 106.1 kg
[~2019-07-02 14:47] MED LIST changes: +ACCUNEB SO1.25 MG/1 INH; +FENOFIBRATE160 MG PO; +FLONASE 0.05%50 MCG NASAL; +LUTEIN-ZEAXANT1 EACH PO; +MECLIZINE HCL25 MG PO; +SPIRIVA INH
[2019-07-02 15:18] LABS: HEMATOCRIT 41.5 % (37.0-47.0); HEMOGLOBIN 13.4 gm/dL (12.0-15.0); MCH 29.4 pg (26.0-34.0); MCHC 32.3 g/dL (28.0-37.0); MCV 90.8 fL (80.0-100.0); PLATELET COUNT 246 thou/uL (150-400); RBC 4.57 mil/uL (4.20-5.00); RDW 14.6 % (10.5-14.5)
[2019-07-02 15:26] LABS: CALCIUM 9.7 mg/dL (8.5-10.1); POTASSIUM 4.4 mmol/L (3.5-5.1)
[2019-07-02 15:32] LABS: ALBUMIN 3.8 g/dL (3.4-5.0); TOTAL BILIRUBIN 0.5 mg/dL (<0.1-1.0); TOTAL PROTEIN 7.2 g/dL (6.4-8.2)
[2019-07-02 15:33] LABS: URINE BILIRUBIN NEGATIVE (Negative); URINE BLOOD NEGATIVE (Negative); URINE CLARITY CLEAR; URINE COLOR YELLOW; URINE GLUCOSE-RANDOM* NEGATIVE (Negative); URINE KETONES NEGATIVE (Negative); URINE LEUKOCYTES 1+ (Negative); URINE NITRITE NEGATIVE (Negative); URINE PROTEIN (DIPSTICK) NEGATIVE (Negative); URINE SPECIFIC GRAVITY 1.015 (1.005-1.035); URINE UROBILINOGEN 0.2 E.U./dl (0.2-1.0)
[2019-07-02 15:42] LABS: BACTERIA None Seen /HPF (None Seen); CASTS None Seen /LPF (None Seen); CRYSTALS None Seen /LPF (None Seen); SQUAMOUS 0-3 Few /LPF (0-3); URINE RBC 0-2 Rare /HPF (0-2); URINE WBC 6-15 Few /HPF (0-5); WBC CLUMPS Few (None Seen)
[2019-07-02 16:00] LABS: ABSOLUTE NEUTROPHILS 4.4 thou/uL (1.4-8.2); PLATELET ESTIMATE NORMAL
[2019-07-02] MEDS ORDERED: PRILOSEC OTC20 MG PO (18:05)
[2019-07-02 18:23] VITALS: BP 150/63
--- NOTE | 2019-07-03 14:08 | EKG ---
[place] [address] [facility] [employer] [place] [address] ELECTROCARDIOGRAM REPORT Name: SHEILA BRANCH Room #: DEP Albert#: [id number] Admission: 07/02/19 Attend Phys: Discharge: 07/02/19 Date of : 39 Report #: [id number] THIS REPORT FOR: //name// [facility] ED Test Date: 2019-07-02 Test Time: 17:20:59 Pat Name: SHEILA BRANCH Department: Room: Gender: F Grab Operator: adriana : 1935 Requested By: Abena Orozco Order Number: [id number] MD: Stephen Tenorio Measurements Intervals [place] Rate: 97 P: 33 TX: 216 QRS: -8 QRSD: 99 T: 63 QT: 371 QTc: 472 Interpretive Statements Sinus rhythm Prolonged TX interval Low voltage, precordial leads Baseline wander in lead(s) V1 Compared to ECG 07/18/2018 16:35:05 Electronically Signed On 07-03-2019 14:07:52 CDT by Stephen Tenorio [email or web address] <ELECTRONICALLY SIGNED> By: Stephen Tenorio MD 07/03/19 1407 172 19 Stephen Tenorio MD /SHARRON
== END 2019-07-02 18:23 | disposition home or self-care (01) ==
LOC: ER 14:47
PROVIDERS: Emergency Medicine
DX: R10.13 Epigastric pain (principal); J44.9 Chronic obstructive pulmonary disease, unspecified; Z87.19 Personal history of other diseases of the digestive system; Z96.642 Presence of left artificial hip joint; Z96.652 Presence of left artificial knee joint; Z90.710 Acquired absence of both cervix and uterus

== ENCOUNTER → 2020-03-06 | Outpatient (CLI) | payer OTHER ==
[~2020-03-06] MED LIST changes: +PRILOSEC OTC20 MG PO
== END ==
LOC: SJCVC 13:12
DX: R94.31 Abnormal electrocardiogram [ECG] [EKG] (principal); I45.10 Unspecified right bundle-branch block; I10 Essential (primary) hypertension; E78.5 Hyperlipidemia, unspecified; I65.23 Occlusion and stenosis of bilateral carotid arteries; G47.33 Obstructive sleep apnea (adult) (pediatric); I26.92 Saddle embolus of pulmonary artery without acute cor pulmonale; Z99.89 Dependence on other enabling machines and devices

== ENCOUNTER 2020-04-09 17:00 | Emergency (ER) | payer OTHER ==
[~2020-04-09] VITALS: Ht 157.5 cm; Wt 98.9 kg
[2020-04-09 17:46] LABS: ABSOLUTE NEUTROPHILS 4.6 thou/uL (1.4-8.2); BASOPHILS 1.3 % (0.0-2.0); EOSINOPHILS 9.7 % (0.0-3.0); HEMOGLOBIN 13.3 gm/dL (12.0-15.0); LYMPHOCYTES 22.8 % (24.0-44.0); MCH 31.1 pg (26.0-34.0); MCV 91.2 fL (80.0-100.0); MONOCYTES 10.5 % (1.0-8.0); PLATELET COUNT 227 thou/uL (150-400); POLYS 55.7 % (36.0-66.0); RBC 4.28 mil/uL (4.20-5.00); RDW 14.5 % (10.5-14.5); WBC 8.2 thou/uL (4.0-11.0)
[2020-04-09 17:54] LABS: ANION GAP 8 mmol/L (7-16); BUN 28 mg/dL (7-18); CALCIUM 9.7 mg/dL (8.5-10.1); CHLORIDE 96 mmol/L (98-107); CO2 29 mmol/L (21-32); CREATININE 1.6 mg/dL (0.6-1.0); GLUCOSE 108 mg/dL (74-106); POTASSIUM 3.9 mmol/L (3.5-5.1); SODIUM 133 mmol/L (136-145)
[2020-04-09 18:04] LABS: ALBUMIN 3.6 g/dL (3.4-5.0); SGOT 47 U/L (15-37); SGPT 37 U/L (30-65); TOTAL BILIRUBIN 0.4 mg/dL (0.2-1.0); TOTAL PROTEIN 7.5 g/dL (6.4-8.2); TROPONIN-I <0.06 ng/mL (<0.06)
[2020-04-09 22:29] VITALS: BP 158/85
[2020-04-09] MEDS ORDERED: TESSALON PERLE100 MG PO (22:35)
--- NOTE | 2020-04-10 07:46 | EKG ---
[facility] [place] [address] [place] [address] ELECTROCARDIOGRAM REPORT Name: SHEILA BRANCH Room #: DEP Albert#: [id number] Admission: 04/09/20 Attend Phys: Discharge: 04/09/20 Date of : 39 Report #: [id number] THIS REPORT FOR: cc: Walker Ramires MD, Neal A. MD Lundgren,Jesus Patel MD FAC ~ THIS REPORT FOR: //name// [facility] ED Test Date: 2020-04-09 Test Time: 17:26:16 Pat Name: SHEILA BRANCH Department: Room: Gender: Data Analyst: [facility] : 1935 Requested By: Yazmin Gould Order Number: [id number] MD: Jesus Gordon Measurements Intervals [place] Rate: 120 P: -84 DC: 74 QRS: -10 QRSD: 116 T: 32 QT: 354 QTc: 501 Interpretive Statements Sinus or ectopic atrial tachycardia Atrial premature complex Right bundle branch block Poor R wave progression Compared to ECG 07/02/2019 17:20:59 Atrial premature complex(es) now present Right bundle-branch block now present Heart rate has increased Electronically Signed On 04-10-2020 7:46:03 CDT by Jesus Gordon [email or web address] <ELECTRONICALLY SIGNED> By: Jesus Gordon MD, [facility] 04/10/20 0746 1726 1726 Jesus Gordon MD, [facility] /EPI
== END 2020-04-09 23:06 | disposition home or self-care (01) ==
LOC: ER 17:00
PROVIDERS: Nurse Practitioner Family
DX: R05 Cough (principal); J44.9 Chronic obstructive pulmonary disease, unspecified; Z79.899 Other long term (current) drug therapy; Z79.82 Long term (current) use of aspirin; Z20.828 Contact with and (suspected) exposure to other viral communicable diseases

== ENCOUNTER 2020-08-05 11:22 | Emergency (ER) | payer OTHER ==
[~2020-08-05] VITALS: Ht 162.6 cm; Wt 99.8 kg
[~2020-08-05 11:22] MED LIST changes: +TESSALON PERLE100 MG PO
[2020-08-05 12:41] VITALS: BP 129/63
== END 2020-08-05 12:41 | disposition home or self-care (01) ==
LOC: ER 11:22
DX: S30.0XXA Contusion of lower back and pelvis, initial encounter (principal); J44.9 Chronic obstructive pulmonary disease, unspecified; Z90.710 Acquired absence of both cervix and uterus; Z79.899 Other long term (current) drug therapy; Z79.82 Long term (current) use of aspirin; W01.0XXA Fall on same level from slipping, tripping and stumbling without subsequent striking against object, initial encounter; Y93.89 Activity, other specified; Y92.89 Other specified places as the place of occurrence of the external cause; Y99.8 Other external cause status

== ENCOUNTER → 2020-09-03 | Outpatient (CLI) | payer OTHER | LOC: ULTRA 15:25 | PROVIDERS: ATTEND Nurse Practitioner | DX: S30.0XXA Contusion of lower back and pelvis, initial encounter (principal); R22.2 Localized swelling, mass and lump, trunk; X58.XXXA Exposure to other specified factors, initial encounter; Y93.89 Activity, other specified; Y92.89 Other specified places as the place of occurrence of the external cause; Y99.8 Other external cause status ==

== ENCOUNTER 2020-10-24 23:03 | Inpatient (IN) | payer OTHER ==
[~2020-10-24] VITALS: Ht 152.4 cm; Wt 108.9 kg
[~2020-10-24 23:03] MED LIST changes: -LEVOTHYROXIN0.125 M1 PO; +LEVOTHYROXINE150 MC1 PO
[2020-10-24 23:04] VITALS: BP 133/69
[2020-10-25 00:16] LABS: ABSOLUTE NEUTROPHILS 3.5 thou/uL (1.4-8.2); BASOPHILS 1.2 % (0.0-2.0); EOSINOPHILS 10.3 % (0.0-3.0); HEMATOCRIT 41.2 % (37.0-47.0); HEMOGLOBIN 13.4 gm/dL (12.0-15.0); LYMPHOCYTES 28.5 % (24.0-44.0); MCH 30.5 pg (26.0-34.0); MCHC 32.5 g/dL (28.0-37.0); MCV 93.9 fL (80.0-100.0); MONOCYTES 13.8 % (1.0-8.0); PLATELET COUNT 228 thou/uL (150-400); POLYS 46.2 % (36.0-66.0); RBC 4.39 mil/uL (4.20-5.00); RDW 15.2 % (10.5-14.5); WBC 7.7 thou/uL (4.0-11.0)
[2020-10-25 00:17] LABS: ANION GAP 6 mmol/L (7-16); BUN 48 mg/dL (7-18); CALCIUM 9.7 mg/dL (8.5-10.1); CHLORIDE 98 mmol/L (98-107); CO2 31 mmol/L (21-32); CREATININE 2.3 mg/dL (0.6-1.0); GLUCOSE 102 mg/dL (74-106); POTASSIUM 4.3 mmol/L (3.5-5.1); SODIUM 135 mmol/L (136-145)
[2020-10-25] MEDS ORDERED: OYSTER SHELL 51 EACH PO (00:22)
[2020-10-25] MEDS ORDERED: COLACE 100 MG100 MG PO (00:22)
[2020-10-25] MEDS ORDERED: GUAIFENESIN DM S5 ML PO (00:23)
[2020-10-25 00:26] LABS: TROPONIN-I <0.06 ng/mL (<0.06)
[2020-10-25 03:20] VITALS: BP 139/62
--- NOTE | 2020-10-25 06:21 | NUR ---
ADMIT PT ADMITTED FROM [facility] FOR COPD EXACERBATION, COVID TEST WAS POSITIVE PT PLACED IN ENHANCED PRECAUTIONS ISOLATION. LUNGS COARSE AND WHEEZING IN ALL ANSARI PT REPORTS COUGHING UP THICK SPUTUM NOT VISUALIZED BY THIS RN. TELEMETRY PLACED READING SR WITH RATES IN 80'S. SKIN C/D/I NO AREAS OF BREAKDOWN NOTED. PT'S FAMILY ESPECIALLY HER CHILDREN ARE ACTIVE IN HER LIFE AND CARES. O2 AT 4 LITERS VIA NC SATS IN MID TO UPPER 90'S. ASSESSMENT COMPLETED SEE FLOWSHEET. CONTINUE POC.
[2020-10-25 07:15] VITALS: BP 145/72
[2020-10-25 15:29] VITALS: BP 132/78
--- NOTE | 2020-10-25 18:27 | NUR ---
RN ASSUMED PT'S CARE AT 0700AM, PT IS A&OX3, PT IS STARTS IV ABX, PT IS ON O2 3-4 L/MIN/NC TO KEEP O2SAT 93-95%, BUT PT STILL HAS COUGHING AND SOB WITH ACTIVITIES, PT 'S VS ARE STABLE BY THIS TIME, PT CAN GET UP TO BSC BY HERSELF,PT IS CONTINUING COVID ISOLATION .
[2020-10-25 19:31] VITALS: BP 145/81
[2020-10-25 22:22] LABS: ALBUMIN 4.1 g/dL (3.4-5.0); DIRECT BILIRUBIN 0.2 mg/dL (<0.1-0.2); MAGNESIUM 1.9 mg/dL (1.8-2.4); TOTAL BILIRUBIN 0.5 mg/dL (0.2-1.0); TOTAL PROTEIN 7.9 g/dL (6.4-8.2)
[2020-10-25 23:09] VITALS: BP 145/81
[2020-10-26 03:56] LABS: ABSOLUTE NEUTROPHILS 8.2 thou/uL (1.4-8.2); BASOPHILS 0.2 % (0.0-2.0); EOSINOPHILS 0.1 % (0.0-3.0); HEMOGLOBIN 12.9 gm/dL (12.0-15.0); MCH 30.2 pg (26.0-34.0); MCHC 32.4 g/dL (28.0-37.0); MCV 93.1 fL (80.0-100.0); MONOCYTES 3.1 % (1.0-8.0); PLATELET COUNT 222 thou/uL (150-400); POLYS 84.6 % (36.0-66.0); RBC 4.29 mil/uL (4.20-5.00); RDW 14.8 % (10.5-14.5); WBC 9.7 thou/uL (4.0-11.0)
[2020-10-26 04:01] VITALS: BP 156/77
[2020-10-26 04:05] LABS: ALBUMIN 3.7 g/dL (3.4-5.0); CREATININE 1.7 mg/dL (0.6-1.0); POTASSIUM 4.2 mmol/L (3.5-5.1); TOTAL BILIRUBIN 0.4 mg/dL (0.2-1.0); TOTAL PROTEIN 7.1 g/dL (6.4-8.2)
[2020-10-26 04:28] VITALS: BP 140/65; BP 156/83
--- NOTE | 2020-10-26 05:54 | NUR ---
PT PROGRESING SLOWLY TOWARDS D/C GOALS. LUNGS CONINUE TO BE DIMINISHED WITH WHEEZES ANABELL. RR 20. SAT 94% ON 5LNC. ATTEMPTED TO TITRATE DOWN. SAT ONLY 91% ON 5L NOW. RT NOTIFIED. SHE WAS INCREASED TO 5L FROM 3LNC DUE TO SAT FOUND TO BE 84%. MRSA, INFLUENZA, URINE FOR LEGIONELLA AND STREP SENT TO LAB. CONVALESCENT PLASMA INFUSING. WILL CONTINUE TO MONITOR FOR CHANGES.
--- NOTE | 2020-10-26 07:41 | NUR ---
NOTIFIED DR NEAL THIS AM OF PT DESATURATION INTO 80'S AND INCREASE TO 5L WITH SATS 89-91%. ALBUTEROL MDI INHALERS ORDERED QID. NOTIFIED DAY SIFT NS TO F/U. CONVALESCENT PLASMA INFUSED.
[2020-10-26 08:06] VITALS: BP 156/73
--- NOTE | 2020-10-26 10:14 | EKG ---
[address] [place] [address] ELECTROCARDIOGRAM REPORT Name: SHEILA BRANCH Room #: 349-I ADM IN M.R.#: [id number] Admission: 10/25/20 Attend Phys: Walker Ramires MD Discharge: Date of : 39 Report #: [id number] [facility] ED Test Date: 2020-10-24 Test Time: 23:08:25 Pat Name: SHEILA BRANCH Department: Room: [facility] Gender: F Production Grip: RIDDHI : 1935 Requested By: Lavonne Donald Order Number: [id number] MD: Stephen Tenorio Measurements Intervals [place] Rate: 82 P: -21 GA: 185 QRS: -14 QRSD: 129 T: 50 QT: 422 QTc: 493 Interpretive Statements Sinus rhythm Right bundle branch block Baseline wander in lead(s) V3 Compared to ECG 04/09/2020 17:26:16 Atrial premature complex(es) no longer present Poor R-wave progression no longer present Electronically Signed On 10-26-2020 10:14:46 SKULL GRINDER by Stephen Tenorio [email or web address] <ELECTRONICALLY SIGNED> By: Stephen Tenorio MD 10/26/20 1014 07 07 Stephen Tenorio MD /EPI
[2020-10-26 11:51] LABS: ALBUMIN 3.9 g/dL (3.4-5.0); CALCIUM 9.2 mg/dL (8.5-10.1); CREATININE 1.6 mg/dL (0.6-1.0); DIRECT BILIRUBIN 0.1 mg/dL (<0.1-0.2); PHOSPHORUS 2.9 mg/dL (2.6-4.7); POTASSIUM 3.8 mmol/L (3.5-5.1); TOTAL BILIRUBIN 0.3 mg/dL (0.2-1.0); TOTAL PROTEIN 7.6 g/dL (6.4-8.2)
[2020-10-26 12:34] VITALS: BP 154/78
[2020-10-26 15:33] VITALS: BP 137/62
--- NOTE | 2020-10-26 16:59 | NUR ---
RN ASSUMED PT'S CARE AT 0700AM, PT IS A&OX3, PT IS ON O2 5L/MIN/NC, PT STILL HAS SOB WITH ACTIVIES , PT'S VS ARE STABLE, PT IS CONTINUING IV ABX, PT DENIES PAIN BY THIS TIME. PT'S COUGHING HAS IMPROVED.
[2020-10-26 19:50] VITALS: BP 151/81
[2020-10-27 04:30] VITALS: BP 157/78
--- NOTE | 2020-10-27 05:18 | NUR ---
PT MAKING SLOW PROGRESS TOWARDS GOALS. O2 AT 5L PER NC THROUGHOUT THE NIGHT. PT LUNGS, WHEEZING IT ALL ANSARI. AT TIMES, PT HAS AUDIBLE WHEEZING. "THEY TOLD ME THEY THINK I HAD AN ASTHMA ATTACK" HER SOURCE FOR SOA.
[2020-10-27 07:25] VITALS: BP 146/59
[2020-10-27 07:29] LABS: HEMATOCRIT 42.5 % (37.0-47.0); HEMOGLOBIN 13.7 gm/dL (12.0-15.0); MCH 30.4 pg (26.0-34.0); MCHC 32.4 g/dL (28.0-37.0); MCV 93.9 fL (80.0-100.0); RBC 4.52 mil/uL (4.20-5.00); RDW 15.4 % (10.5-14.5); WBC 11.1 thou/uL (4.0-11.0)
[2020-10-27 07:49] LABS: CALCIUM 9.4 mg/dL (8.5-10.1); CREATININE 1.5 mg/dL (0.6-1.0); DIRECT BILIRUBIN 0.2 mg/dL (<0.1-0.2); POTASSIUM 4.1 mmol/L (3.5-5.1); TOTAL BILIRUBIN 0.4 mg/dL (0.2-1.0); TOTAL PROTEIN 7.7 g/dL (6.4-8.2)
--- NOTE | 2020-10-27 08:56 | NUR ---
INITIAL ASSESSMENT: SW reviewed chart and spoke with nursing and attending physician. Pt was admitted from [facility] due to COPD exacerbation. Pt placed in Enhanced Isolation due to COVID-19. Pt is afebrile and on 5L of O2. Pt is on IV abx and IV steroids. Pt has had convalescent plasma and Ivermectin. Pt is completing course of Remdesivir. SW spoke with pt via phone. Introduced role of SW. Pt is alert/orientated x 4. Pt reports she lives alone in an apt at [facility]. Pt does have a cane and walker to use if needed. Pt is legally blind. Pt reports she has a nebulizer at home, but does not have O2. No hx of HH services or post-acute placement. Pt's PCP is Dr. Ramires. Pt states she has a pneumatic jack operator who cleans her apt a couple times each week. Pt's dtr, Esperanza, is involved in her care. Pt states she wants to return to her apt when discharged. SW discussed possible HH services. Pt is agreeable and requests [facility]. internet media planner to fax HH referral to [facility] for review. SW is following to assist as needed with discharge planning.
--- NOTE | 2020-10-27 09:36 | NUR ---
Nutrition: pt admitted with COPD exacerbation, COVID+. Seen due to consult related to poor intake. Pt eating fair, 62% on average last 6 meals. Reports no appetite issues and was eating fine prior to admit also. no weight loss. BMI 47, extreme class 3 obesity. Had requested soft diet on admit due to not having dentures but dtr has since brought them in so now able to have regular diet. Low nutrition risk.
[2020-10-27 11:07] VITALS: BP 184/81
[2020-10-27 15:11] VITALS: BP 178/90
--- NOTE | 2020-10-27 16:57 | NUR ---
FAXED REFERRAL TO [facility] RECEIVED CONFIRMATION AND LEFT MSG WITH INTAKE WILL F/U IN THE AM.
--- NOTE | 2020-10-27 18:02 | NUR ---
PATIENT HAS RESTED IN ROOM THROUGH THE DAY. SHE IS ALERT ORIENTED X4. PLEASANT WITH CARE. WILL CONT WITH PLAN OF CARE.
[2020-10-27 19:18] VITALS: BP 168/87
[2020-10-28 04:25] VITALS: BP 142/63
--- NOTE | 2020-10-28 05:33 | NUR ---
PT CONINUES TO HAVE NOTED WHEEZING OVER ALL ANSARI, AT TIMES EASILY AUDIBLE WITHOUT A STETHOSCOPE. REPORTS SOME HARSH COUGH THIS MORNING THAT CAUSED HER TO HAVE AN ONSET OF STERNAL, LEFT CHEST WALL AND LATERAL RIB (LEFT) AREA PAIN. PAIN WAS EXACERBATED WITH EACH COUGH AND FURTHER WITH MILD-MOD PALPATION OF THOSE SITES. TYLENOL GIVEN. PT REPORTING SOME OCCASIONAL THICK WHITE SPUTUM. CONTINUE TO MONITOR.
[2020-10-28 06:26] LABS: ALBUMIN 3.5 g/dL (3.4-5.0); CALCIUM 8.9 mg/dL (8.5-10.1); CREATININE 1.5 mg/dL (0.6-1.0); DIRECT BILIRUBIN 0.2 mg/dL (<0.1-0.2); PHOSPHORUS 3.3 mg/dL (2.5-4.9); POTASSIUM 3.9 mmol/L (3.5-5.1); TOTAL BILIRUBIN 0.4 mg/dL (0.2-1.0); TOTAL PROTEIN 6.6 g/dL (6.4-8.2)
[2020-10-28 07:10] VITALS: BP 143/72
[2020-10-28 14:15] VITALS: BP 143/72
--- NOTE | 2020-10-28 14:37 | NUR ---
TIFF reviewed chart and spoke with nursing and attending physician. Pt remains in Enhanced Isolation due to COVID. Pt is afebrile and on 1L of O2. Pt remains on IV abx/IV steroids. Pt is on Remdesivir. PT/OT evals ordered today. TIFF spoke with pt via phone to discuss discharge plan. Pt asks SW to contact her dtr, Esperanza, to discuss discharge plan. Recommendation made for pt to go home with . [facility] is able to accept pt on service. Will need a rest/exercise oximetry to determine home O2 needs. Pt has a cpap machine at home. Pt's dtr states that she does not know what company provided the cpap machine. Discharge home with is anticipate for Tuesday/Tuesday. Pt's dtr is agreeable with discharge plan. TIFF is following to assist as needed with discharge planning.
[2020-10-28 15:57] VITALS: BP 136/73
--- NOTE | 2020-10-28 16:32 | NUR ---
PATIENT UP WITH THERAPY EARLIER STILL SOB WHEN SHE AMBULATES. SHE DENIES PAIN HOWEVER. SHE IS ALERT ORIENTED X4. PLEASANT WITH CARE. WILL CONT TO MONITOR AND ASSIST NEEDED.
[2020-10-28 19:11] VITALS: BP 127/48
[2020-10-29 03:21] VITALS: BP 158/76
--- NOTE | 2020-10-29 04:51 | NUR ---
PATIENT REMAINS A/O. SOA WITH ACTIVITY. C/O HEADACHE. MEDS GIVEN ORDERED. DENIES N/V. AFEBRILE TMAX 98.6. PT X1 ASSIST. VSS. REMAINS ON 2L VIA NC. DENIES NEEDS. WILL KEEP MONITORING.
[2020-10-29 06:24] LABS: ALBUMIN 3.2 g/dL (3.4-5.0); CALCIUM 8.7 mg/dL (8.5-10.1); CREATININE 1.4 mg/dL (0.6-1.0); DIRECT BILIRUBIN 0.2 mg/dL (<0.1-0.2); PHOSPHORUS 3.1 mg/dL (2.5-4.9); POTASSIUM 4.4 mmol/L (3.5-5.1); TOTAL BILIRUBIN 0.5 mg/dL (0.2-1.0); TOTAL PROTEIN 5.9 g/dL (6.4-8.2)
[2020-10-29 07:50] VITALS: BP 142/67
[2020-10-29 11:33] VITALS: BP 143/84
--- NOTE | 2020-10-29 14:25 | NUR ---
TIFF reviewed chart and spoke with nursing and attending physician. Pt remains in Enhanced Isolation due to COVID. Pt is afebrile and on 1L of O2. Pt is on IV abx/IV steroids. Pt is completing course of Remdesivir. Discharge home with HH and Home O2 is anticipated for tomorrow. Pt is aware of discharge and agreeable. TIFF spoke with pt's dtrMary. via phone to discuss discharge plan. Pt's home cpap machine is through [facility]. Pt's dtr has questions regarding the tubing and the mask and if P can replace or assist with cleaning prior to pt reusing the equipment when she goes home. TIFF faxed clinical info to [facility] and spoke with Aliza in intake to notify of new home O2 referral and request for assistance with cleaning and supplies for home cpap. [facility] will instruct pt/family on cleaning and will obtain orders from Dr. Mckeon if additional supplies are needed. TIFF updated pt's dtr via phone. Pt's dtr to bring by clothes for pt later today. Pt will need rest/exercise oximetry ordered prior to discharge to determine home O2 needs. TIFF is following to assist as needed with discharge planning.
[2020-10-29 15:05] VITALS: BP 143/75
--- NOTE | 2020-10-29 18:56 | NUR ---
ASSUMED Ptient care at 0700. a/o x4. tolerated on 2l. progressing towards poc goals.
[2020-10-29 19:10] VITALS: BP 137/75
[2020-10-30] VITALS (7 sets, daily range): BP systolic 143–159; BP diastolic 61–80
--- NOTE | 2020-10-30 04:16 | NUR ---
RECIEVED CARE OF THIS PATIENT AT 1900. PATIENT ALERT AND ORIENTED X4. UP AD LUCERO. BLOOD SUGAR WAS 140, NO COVERAGE GIVEN. ON TELE AND RUNNING NORMAL SINUS RHYTHM. RESP REG BUT HAS WHEEZIG IN ALL LOBES. ON OR AT 2L/NC. SCHEDULED TO GO HOME TODAY. C/O PAIN IN L HIP. TYLENOL GIVEN WITH GOOD RESULTS. SLEPT MOST OF THE NIGHT.
[2020-10-30 06:01] LABS: ALBUMIN 3.3 g/dL (3.4-5.0); CREATININE 1.2 mg/dL (0.6-1.0); DIRECT BILIRUBIN 0.2 mg/dL (<0.1-0.2); PHOSPHORUS 3.4 mg/dL (2.5-4.9); POTASSIUM 4.4 mmol/L (3.5-5.1); TOTAL BILIRUBIN 0.5 mg/dL (0.2-1.0); TOTAL PROTEIN 6.1 g/dL (6.4-8.2)
[2020-10-30] MEDS ORDERED: CEFDINIR300 MG PO (11:06)
--- NOTE | 2020-10-30 14:53 | NUR ---
DISCHARGE NOTE: TIFF reviewed chart and spoke with nursing and attending physician. Pt is medically stable for discharge home today with and Home O2. Rest/exercise oximetry completed. Pt does qualify for home O2. Script left on pt's chart. TIFF faxed testing and script to [facility]. Spoke with Alecia in intake to confirm info was received. Portable O2 tank to be delivered to hospital prior to pt's discharge. [facility] to contact pt/family to arrange staff to service pt's home CPAP machine. TIFF faxed finalized discharge orders/summary to [facility]. Spoke with Radha in intake at [facility] to confirm info was received. TIFF spoke with pt's dtr, Esperanza, regarding discharge. Esperanza is going to meet [facility] staff at pt's apt this afternoon to have CPAP machine serviced. Esperanza will provide transportation later this afternoon/evening. Awaiting call back from Esperanza to notify nursing of what time pt will be picked up later today. Contact info for and P placed in pt's discharge summary. No additional SW needs identified at this time, but is available to assist should needs arise.
== END 2020-10-30 17:40 | disposition home health service (06) | DRG 177 ==
LOC: ER 23:03 → 3W 10-25 02:40 → EROBS 10-25 02:40 → 3W 10-25 03:36 → 2N 10-27 08:33 → 3W 10-27 08:39
PROVIDERS: Emergency Medicine; Specialist; ADMIT Family Medicine; ATTEND Family Medicine
DX: U07.1 COVID-19 (principal); J96.01 Acute respiratory failure with hypoxia; J12.82 Pneumonia due to coronavirus disease 2019; J44.1 Chronic obstructive pulmonary disease with (acute) exacerbation; J45.901 Unspecified asthma with (acute) exacerbation; J44.0 Chronic obstructive pulmonary disease with (acute) lower respiratory infection; H35.30 Unspecified macular degeneration; M19.90 Unspecified osteoarthritis, unspecified site; N18.9 Chronic kidney disease, unspecified; Z96.653 Presence of artificial knee joint, bilateral; Z96.642 Presence of left artificial hip joint; I25.10 Atherosclerotic heart disease of native coronary artery without angina pectoris; E78.5 Hyperlipidemia, unspecified; E03.9 Hypothyroidism, unspecified; Z82.3 Family history of stroke; I12.9 Hypertensive chronic kidney disease with stage 1 through stage 4 chronic kidney disease, or unspecified chronic kidney disease; Z82.49 Family history of ischemic heart disease and other diseases of the circulatory system; Z90.710 Acquired absence of both cervix and uterus; Z90.49 Acquired absence of other specified parts of digestive tract; Z86.711 Personal history of pulmonary embolism; Z98.49 Cataract extraction status, unspecified eye; D72.19 Other eosinophilia
CPT/HCPCS: 10879

== ENCOUNTER → 2020-11-14 | Outpatient (CLI) | payer OTHER ==
[~2020-11-14] MED LIST changes: +COLACE 100 MG100 MG PO; +GUAIFENESIN DM S5 ML PO; +OYSTER SHELL 51 EACH PO
== END ==
LOC: CAT 13:13
PROVIDERS: ATTEND Internal Medicine
DX: I25.10 Atherosclerotic heart disease of native coronary artery without angina pectoris (principal); U07.1 COVID-19; K43.9 Ventral hernia without obstruction or gangrene; G47.33 Obstructive sleep apnea (adult) (pediatric); K43.6 Other and unspecified ventral hernia with obstruction, without gangrene; E27.8 Other specified disorders of adrenal gland; Z99.89 Dependence on other enabling machines and devices

== ENCOUNTER → 2020-11-14 | Outpatient (CLI) | payer OTHER | LOC: SJCVC 11:42 | PROVIDERS: ATTEND Internal Medicine | DX: R94.31 Abnormal electrocardiogram [ECG] [EKG] (principal); I45.10 Unspecified right bundle-branch block; I13.0 Hypertensive heart and chronic kidney disease with heart failure and stage 1 through stage 4 chronic kidney disease, or unspecified chronic kidney disease; I50.32 Chronic diastolic (congestive) heart failure; N18.9 Chronic kidney disease, unspecified; E78.5 Hyperlipidemia, unspecified; I65.23 Occlusion and stenosis of bilateral carotid arteries; G47.33 Obstructive sleep apnea (adult) (pediatric); U07.1 COVID-19; J45.40 Moderate persistent asthma, uncomplicated; I26.92 Saddle embolus of pulmonary artery without acute cor pulmonale; H35.30 Unspecified macular degeneration; E03.9 Hypothyroidism, unspecified; I25.2 Old myocardial infarction; G47.30 Sleep apnea, unspecified; Z90.49 Acquired absence of other specified parts of digestive tract; Z96.653 Presence of artificial knee joint, bilateral; Z98.890 Other specified postprocedural states; Z90.710 Acquired absence of both cervix and uterus; Z99.89 Dependence on other enabling machines and devices; Z88.8 Allergy status to other drugs, medicaments and biological substances; Z79.82 Long term (current) use of aspirin; Z79.899 Other long term (current) drug therapy; Z86.711 Personal history of pulmonary embolism; Z82.49 Family history of ischemic heart disease and other diseases of the circulatory system ==

== ENCOUNTER 2021-09-29 12:54 | Emergency (ER) | payer OTHER ==
[~2021-09-29] VITALS: Ht 160 cm; Wt 99.8 kg
[2021-09-29 13:16] LABS: ABSOLUTE NEUTROPHILS 9.8 thou/uL (1.4-8.2); BASOPHILS 0.3 % (0.0-2.0); EOSINOPHILS 1.7 % (0.0-3.0); HEMATOCRIT 42.7 % (37.0-47.0); HEMOGLOBIN 13.9 gm/dL (12.0-15.0); LYMPHOCYTES 8.8 % (24.0-44.0); MCH 29.8 pg (26.0-34.0); MCHC 32.6 g/dL (28.0-37.0); MCV 91.6 fL (80.0-100.0); MONOCYTES 13.8 % (1.0-8.0); PLATELET COUNT 272 thou/uL (150-400); POLYS 75.4 % (36.0-66.0); RBC 4.66 mil/uL (4.20-5.00); RDW 15.5 % (10.5-14.5)
[2021-09-29 13:27] LABS: CALCIUM 9.9 mg/dL (8.5-10.1); POTASSIUM 4.1 mmol/L (3.5-5.1)
[2021-09-29 13:36] LABS: ALBUMIN 3.3 g/dL (3.4-5.0); TOTAL BILIRUBIN 1.1 mg/dL (0.2-1.0); TOTAL PROTEIN 7.6 g/dL (6.4-8.2)
[2021-09-29] MEDS ORDERED: LEVOFLOXACIN750 MG PO ×2 (13:48→15:10)
--- NOTE | 2021-09-29 14:02 | EKG ---
[place] [address] [place] [address] ELECTROCARDIOGRAM REPORT Name: SEHILA BRANCH Room #: [facility].R.#: [id number] Admission: Attend Phys: Discharge: Date of : 39 Report #: [id number] [facility] ED Test Date: 2021-09-29 Test Time: 13:01:24 Pat Name: SHEILA BRANCH Department: Room: Gender: F Restaurant Associate: : 1935 Requested By: Alonso Laird Order Number: [id number] MD: Stas Mi Measurements Intervals [place] Rate: 87 P: 24 [place]: 153 QRS: -31 QRSD: 119 T: 23 QT: 378 QTc: 455 Interpretive Statements Sinus rhythm Ventricular premature complex Incomplete right bundle branch block Low voltage, precordial leads Compared to ECG 10/24/2020 23:08:25 Ventricular premature complex(es) now present Incomplete right bundle-branch block now present Low QRS voltage now present Right bundle-branch block no longer present Electronically Signed On 09-29-2021 14:02:18 SENIOR LEAD SOFTWARE ENGINEER by Stas Mi [email or web address] <ELECTRONICALLY SIGNED> By: Stas Mi MD, [facility] 09/29/21 1402 1301 1301 Stas Mi MD, FAC /EPI
[2021-09-29 14:38] VITALS: BP 211/80
== END 2021-09-29 15:35 | disposition home or self-care (01) ==
LOC: ER 12:54
PROVIDERS: Emergency Medicine
DX: J18.9 Pneumonia, unspecified organism (principal); Z20.822 Contact with and (suspected) exposure to COVID-19; J44.9 Chronic obstructive pulmonary disease, unspecified; E03.9 Hypothyroidism, unspecified; I12.9 Hypertensive chronic kidney disease with stage 1 through stage 4 chronic kidney disease, or unspecified chronic kidney disease; N18.9 Chronic kidney disease, unspecified; Z79.899 Other long term (current) drug therapy; Z90.49 Acquired absence of other specified parts of digestive tract; Z90.710 Acquired absence of both cervix and uterus